=== PATIENT | female | born 1990 | race Caucasian/White ===

== ENCOUNTER → 2022-09-30 | Emergency (ER) | payer SELFPAY ==
[~2022-09-30] MED LIST: ACETAMINOPHEN 325 MG TABLET ONE; FLUCONAZOLE 100 MG TAB ONE; HYDROCODONE/APAP 5/325 MG TAB ONE; IBUPROFEN 200 MG TAB PO ONE; IBUPROFEN 400 MG TAB ONE; SMZ./TMP. 800/160 MG TABLET ONE
--- OUTSIDE RECORDS SUMMARY | 2022-09-30 17:12 | XMS REPORT | Continuity of Care Document ---
:1990 Author Organization [facility] t Address [address] [place] [address] Care Team Providers Name Role Phone Asked, No Pcp Primary Care Physician Unavailable WINSOME ROMERO Attending Clinician Unavailable RADHA COBB Attending Clinician Unavailable ROSINA MONZON Attending Clinician Unavailable YG GUILLAUME Attending Clinician Unavailable WINSOME ROMERO Admitting Clinician Unavailable LESLEY PATEL Admitting Clinician Unavailable MADELEINE GAGE Admitting Clinician Unavailable Problems Condition Condition Condition Status Onset Resolution Last Treating Co mments Source Name Details Category Date Date Treatment Clinician Date Alcohol Alcohol Disease Active [facility] withdrawal withdrawal 6-01 st seizure seizure 00:00: Hospita without without 00 l complicati complicati on on DTs DTs Disease Active [facility] (delirium (delirium 2-26 st tremens) tremens) 00:00: Hospit a 00 l Allergies, Adverse Reactions, Alerts Allergy Allergy Status Severity Reaction(s) Onset Inactive Treating Comm ents Source Name Type Date Date Clinician Levoflox Propensi Active Rash 2017-05 [facility] acin ty to 0-29 st adverse 00:00: Hospita reaction 00 l s to drug Family History Family Member Diagnosis Comments Start Date Stop Date Source Paternal grandmother Mental illness [facility] Natural [facility] Natural father [facility] Maternal grandfather Cancer [facility] Maternal grandmother [facility] mother [facility] Paternal grandfather Hypertension [facility] Paternal grandfather Stroke [facility] Social History Social Habit Start Date Stop Date Quantity Comments Source History of tobacco Occasional [facility] use tobacco smoker [facility] Gender identity [facility] Sexual orientation [facility] Alcohol intake 2019-10-30 2019-10-30 Current drinker [facility] 00:00:00 00:00:00 of alcohol Hospital (finding) Alcohol Comment 2019-07-26 2019-07-26 1 L vodka per day [facility] 00:00:00 00:00:00 or more reported Hospital by pt. Tobacco use and 2018-03-28 2018-03-28 Smokeless tobacco [facility] exposure 00:00:00 00:00:00 non-user Hospital Sex Assigned At [birth year] [facility] 00:00[facility]00 00:00:00 Hospital Smoking Status Start Date Stop Date Source Occasional tobacco smoker 2018-03-28 00:00:00 [facility] Medications Ordered Filled Start Stop Current Ordering Indication Dosage Frequency Signature Comments Components Source Medication Medication Date Date Medication? Clinician (SIG) Name Name levothyroxi 2019-0 Yes 75ug QD Take 75 Met hodi ne 6-[address] (SYNTHROID, 21:43: mouth Hospi ta LEVOXYL) 75 14 every l mcg tablet morning. liothyronin 2019-0 Yes 5ug QD Take 5 mcg Method[facility] e (CYTOMEL) 6-[address] 5 MCG 21:43: daily. Hospita tablet 14 l buPROPion 2020-0 Yes 150mg QD Take 150 Met hodi XL 6-[address] (WELLBUTRIN 21:43: mouth Hospi ta XL) 150 MG 14 daily. l 24 hr tablet Immunizations Ordered Immunization Filled Immunization Date Status Commen ts Source Name Name FLUCELVAX QUAD PF 2019-07-[address] 00:00:00 Hospital Procedures This patient has no known procedures. Plan of Care Planned Activity Planned Date Details Comments Source Future Scheduled 2023-02-28 [facility] Influenza [facility]al [facility] 00:00:00 (>/= 19 yrs) [code = IMM Influenza Seasonal (>/= 19 yrs)] Future Scheduled 2022-08-30 COVID-19 VACCINE (#1) [facility] Test 01:50:08 [code = COVID-19 VACCINE (#1)] Future Scheduled 2022-08-30 Pneumococcal Vaccine: [facility] Test 01:50:08 Pediatrics (0 to 5 Years) and At-Risk Patients (6 to 64 Years) (1 - PCV) [code = Pneumococcal Vaccine: Pediatrics (0 to 5 Years) and At-Risk Patients (6 to 64 Years) (1 - PCV)] Future Scheduled 2022-08-30 [facility] Test 01:50:08 malignant neoplasm of cervix (procedure) [code = 138178736] Future Scheduled 2022-08-30 INFLUENZA VACCINE [facility] Test 01:50:08 [code = INFLUENZA VACCINE] Future Scheduled [facility]00 malignant neoplasm of cervix (procedure) [code = 946007902] Future Scheduled 2020 [facility] 00:00:00 malignant neoplasm of cervix (procedure) [code = 863817544] Future Scheduled 1991-02-01 COVID-19 Vaccine (#1) [facility] Test 00:00:00 [code = COVID-19 Vaccine (#1)] Encounters Start End Encounter Admission Attending Care Care Encounter Source Date/Time Date/Time Type Type Clinicians Facility Department ID 2019-11-01 2019-11-02 Inpatient E YAYO ROMERO MED [id number] [facility] 08:08:00 18:30:00 WINSOME 2019-11-01 2019-11-01 Emergency E YAYO COBB TW [id number] [facility] 04:30:00 04:59:00 RADHA 2019-10-30 2019-10-31 Inpatient MEHAMMADINASAB, [facility] [id number] [place] 00:00:00 00:00:00 ROSINA [address] 2019-07-26 2019-07-29 Inpatient [facility], [facility] [id number] [place] 00:00:00 00:00:00 MICHELLEA [address] 2019-04-21 2019-04-21 Outpatient E [facility] [id number] 19:12:00 19:12:[address] [facility] 2018-09-14 2018-09-14 Emergency [facility] MED [id number] 1 [place] 11:34:00 11:34:00 Health Results This patient has no known results.
--- NOTE | 2022-09-30 19:04 | ER ---
Nurse's Notes [facility] Name: Maryann Alonso Age: 32 yrs Sex: Female : 1990 Arrival Date: 09/30/2022 Time: 17:09 Bed 20 Private MD: Diagnosis: Suicidal ideations Presentation: 09/30 17:41 Chief complaint: Patient states: "I have a cyst or something in the back of my neck and aa5 it drains every once in a while". Coronavirus screen: At this time, the client does not indicate any symptoms associated with coronavirus-19. Ebola Screen: Patient denies travel to an Ebola-affected area in the 21 days before illness onset. Initial Sepsis Screen: Does the patient meet any 2 criteria? No. Patient's initial sepsis screen is negative. Does the patient have a suspected source of infection? No. Patient's initial sepsis screen is negative. Risk Assessment: Do you want to hurt yourself or someone else? Patient reports no desire to harm self or others. Onset of symptoms was September 2022. 17:41 Acuity: MARCE 4 aa5 17:41 Method Of Arrival: Ambulatory aa5 19:31 Note pt up for discharge signed dc paperwork pt verbalized having suicidal thoughts has kl no plan but sumner not want to live reports is homeless and the place she stays at time has no water or electricity. Historical: - Allergies: 17:42 Levaquin; aa5 - PMHx: 17:42 Hypothyroidism; aa5 - PSHx: 17:42 None; aa5 - Immunization history:: Adult Immunizations unknown. - Social history:: Smoking status: Patient reports the use of cigarette tobacco products, denies chronic smoking, but will smoke occasionally. Screenin:45 [facility] ED Fall Risk Assessment (Adult) History of falling in the last 3 months, ko1 including since admission No falls in past 3 months (0 pts) Confusion or Disorientation No (0 pts) Intoxicated or Sedated No (0 pts) Impaired Gait No (0 pts) Mobility Assist Device Used No (0 pt) Altered Elimination No (0 pt) Score/Fall Risk Level 0 - 2 = Low Risk Oriented to surroundings, Maintained a safe environment, Educated pt \\T\\ family on fall prevention, incl call for assistance when getting out of bed, Assessed \\T\\ reinforced patient's understanding of fall precautions, Provided non-skid footwear, Hourly rounding (assess needs \\T\\ fall precautionary measures) done, Used ambulatory aids as needed (educated on \\T\\ assisted with), Used gait belt as appropriate. Abuse screen: Denies threats or abuse. Denies injuries from another. Nutritional screening: No deficits noted. Tuberculosis screening: No symptoms or risk factors identified. Assessment: 18:45 General: Appears distressed, uncomfortable, Behavior is calm, cooperative, appropriate ko1 for age. Pain: Complains of pain in neck. Neuro: No deficits noted. Cardiovascular: No deficits noted. Respiratory: No deficits noted. GI: No deficits noted. : No deficits noted. EENT: No deficits noted. Derm: Abscess. Musculoskeletal: No deficits noted. 20:08 Reassessment: ASSUMED CARE OF PT. PT CHANGED INTO PAPER SCRUBS. ALL EQUIPMENT REMOVED jj7 FROM ROOM. General: Appears in no apparent distress. comfortable, Behavior is calm, cooperative, appropriate for age, Reports SUICIDAL THOUGHTS DUE TO HOPELESSNESS. Psych: 19:32 [place] Suicide Severity Screening: In the past month, have you wished you were kl or wished you could go to sleep and not wake up? Patient responds "yes." Based off the client's responses additional C-SSRS screening is required. "In the past month, have you actually had any thoughts of killing yourself?" Patient responds "yes." "In your lifetime, have you ever done anything, started to do anything, or prepared to do anything to end your life?" Patient responds "yes." Patient reports suicidal intent occurred greater than 3 months prior. Subjective: Patient's mood is sad, hopeless, Delusions are denied, Hallucinations are denied Having thoughts of suicide. Denies suicidal plan. Objective: Patient is cooperative, Speech is normal, Affect is appropriate. Interventions: Removed personal items and placed in bag. Patient placed in hospital gown. Safety Checks: Pt denies substance abuse. Vital Signs: 17:41 BP 144 / 101; Pulse 89; Resp 16 S; Temp 98.1(O); Pulse Ox 100% on R/A; Weight 58.97 kg aa5 (R); Height 5 ft. 6 in. (R); 19:11 BP 138 / 92; Pulse 85; Resp 18; Pulse Ox 99% ; ko1 17:41 Body Mass Index 20.98 (58.97 kg, 167.64 cm) aa5 ED Course: 17:12 Patient arrived in ED. as 17:13 Alfred Ellis PA is PHCP. cp 17:13 Alfred Ogden MD is Attending Physician. cp 17:41 Arm band placed on. aa5 17:42 Triage completed. aa5 18:37 Nabila Leonardo, RN is Primary Nurse. ko1 18:45 Patient has correct armband on for positive identification. Bed in low position. Call ko1 light in reach. Warm blanket given. 19:11 No provider procedures requiring assistance completed. Patient did not have IV access ko1 during this emergency room visit. 19:14 Primary Nurse role handed off by Nabila Leonardo, PRAVEENA ko1 20:08 Kristin Cruz RN is Primary Nurse. jj7 20:08 No apparent distress. TIRED. Safety Checks: Personal items have been removed. ALL ITEMS jj7 REMOVED PER SUICIDE PROTOCOL The door is open or patient has been placed in a hallway bed/chair. Sitter present at this time. 20:08 SUICIDE PRECAUTIONS. jj7 20:08 Patient is placed in psych hold. jj7 Administered Medications: 18:43 Drug: HYDROcodone-acetaminophen PO 5 mg-325 mg 1 tabs Route: PO; ko1 18:43 Drug: Ibuprofen PO 600 mg Route: PO; ko1 19:08 Drug: Fluconazole PO 150 mg Route: PO; ko1 19:08 Drug: Trimethoprim-Sulfamethoxazole PO (160 mg-800 mg (DS) 1 tablet Route: PO; ko1 Medication: 19:11 VIS not applicable for this client. ko1 Outcome: 19:03 Discharge ordered by MD. cp 23:13 ER care complete, transfer ordered by . cp Signatures: Chelsi Wiggins RN RN kl Martinez, Amelia as Calderon, Audri, RN RN aa5 Alfred Ellis PA PA cp Nabila Leonardo, PRAVEENA RN ko1 Kristin Cruz RN RN jj7 Corrections: (The following items were deleted from the chart) 17:42 17:42 Allergies: No Known Allergies; aa5 aa5 19:15 19:11 Discharged to home ambulatory, ko1 ko1 19:15 19:11 Condition: stable ko1 ko1 19:15 19:11 Discharge instructions given to patient, Instructed on discharge instructions, ko1 follow up and referral plans. medication usage, wound care, Demonstrated understanding of instructions, follow-up care, medications, wound care, Prescriptions given X 2, ko1 : 19:12 Patient left the ED. ko1 ko1
--- NOTE | 2022-09-30 19:04 | EDPHYS ---
Physician Documentation [facility] Name: Maryann Alonso Age: 32 yrs Sex: Female : 1990 Arrival Date: 09/30/2022 Time: 17:09 Bed 20 Private MD: ED Physician Alfred Ogden Historical: - Allergies: 09/30 17:42 Levaquin; aa5 - PMHx: 17:42 Hypothyroidism; aa5 - PSHx: 17:42 None; aa5 - Immunization history:: Adult Immunizations unknown. - Social history:: Smoking status: Patient reports the use of cigarette tobacco products, denies chronic smoking, but will smoke occasionally. Vital Signs: 17:41 BP 144 / 101; Pulse 89; Resp 16 S; Temp 98.1(O); Pulse Ox 100% on R/A; Weight 58.97 kg aa5 (R); Height 5 ft. 6 in. (R); 19:11 BP 138 / 92; Pulse 85; Resp 18; Pulse Ox 99% ; ko1 17:41 Body Mass Index 20.98 (58.97 kg, 167.64 cm) aa5 MDM: 17:40 Patient medically screened. [facility] 09/30 19:27 Order name: EKG; Complete Time: 19:27 cp 09/30 19:27 Order name: IV Saline Lock 09/30 19:27 Order name: Suicide Precautions; Complete Time: 21:09 cp 09/30 19:27 Order name: Suicide Screening ([facility]); Complete Time: 21:09 09/30 19:27 Order name: Labs collected and sent; Complete Time: 21: cp 09/30 19:27 Order name: Acetaminophen; Complete Time: 21:28 cp 09/30 19:27 Order name: Salicylate; Complete Time: 21:28 cp 09/30 19:27 Order name: Test, Urine; Complete Time: 21:28 cp 09/30 19:27 Order name: Ptt, Activated; Complete Time: 21:28 cp 09/30 19:27 Order name: Basic Metabolic Panel; Complete Time: 21:28 cp 09/30 21:28 Interpretation: Normal except: NA 135; BUN 6. cp 09/30 19:27 Order name: CBC with Diff; Complete Time: 21:28 cp 09/30 21:28 Interpretation: MPV 7.1; Reviewed. cp 09/30 19:27 Order name: Hepatic Function; Complete Time: 21:28 cp 09/30 21:29 Interpretation: Normal except: AST 10. cp 09/30 19:27 Order name: ETOH Level; Complete Time: 21:28 cp 09/30 21:29 Interpretation: ETOH < 10; Reviewed. cp 09/30 19:27 Order name: PT-INR; Complete Time: 21:28 cp 09/30 21:29 Interpretation: Reviewed. cp 09/30 19:27 Order name: Urine Drug Screen; Complete Time: 21:28 cp 09/30 21:29 Interpretation: Reviewed. cp 09/30 19:27 Order name: EKG - Nurse/Tech; Complete Time: 21:29 cp Administered Medications: 18:43 Drug: HYDROcodone-acetaminophen PO 5 mg-325 mg 1 tabs Route: PO; ko1 18:43 Drug: Ibuprofen PO 600 mg Route: PO; ko1 19:08 Drug: Fluconazole PO 150 mg Route: PO; ko1 19:08 Drug: Trimethoprim-Sulfamethoxazole PO (160 mg-800 mg (DS) 1 tablet Route: PO; ko1 Disposition Summary: 09/30/22 23:13 Transfer Ordered Accepting Physician: Doctor cp Transfer Location: Psych Facility cp Reason: Higher level of care cp Condition: Stable(09/30/22 23:13) cp Problem: new(09/30/22 23:13) cp Symptoms: have improved(09/30/22 23:13) cp Diagnosis - Suicidal ideations cp Forms: - Medication Reconciliation Form cp - SBAR form cp Signatures: Dispatcher [employer] EDAlfred Benitez MD MD cha Calderon, Audri, RN RN aa5 Alfred Ellis PA PA cp Nabila Leonardo, RN RN ko1 Corrections: (The following items were deleted from the chart) 17:42 17:42 Allergies: No Known Allergies; aa5 aa5 19:18 19:03 Home cp cp 19:18 19:03 new cp cp 19:18 19:03 have improved cp cp 19:18 19:03 Stable cp cp 19:18 19:03 Local infection of the skin and subcutaneous tissue, unspecified cp cp
[2022-09-30 19:30] VITALS: TEMP 98.1
[2022-09-30 19:31] VITALS: BP 138/92; O2SAT 99
[2022-09-30 20:47] LABS: Specific Gravity 1.014 (1.005-1.030)
[2022-09-30 20:49] LABS: Absolute Lymphocytes (CBC) 2.1 K/uL (0.7-4.9); Lymphocytes % 26.4 % (15.3-44.8); MCV 91.7 fL (80-100); MPV 7.1 fL (7.6-11.3); RBC Red Blood Cell Count 4.04 M/uL (3.86-4.86)
[2022-09-30 21:00] LABS: Protime INR 1.04
[2022-09-30 21:12] LABS: ALT/SGPT 19 U/L (13-56); AST/SGOT 10 U/L (15-37); Albumin 3.5 g/dL (3.4-5.0); Alkaline Phosphatase 86 U/L (45-117); BUN Blood Urea Nitrogen 6 mg/dL (7-18); Bicarbonate 28 mEq/L (21-32); Bilirubin Direct 0.1 mg/dL (0-0.2); Bilirubin Total 0.3 mg/dL (0.2-1.0); Glomerular Filtration Rate 123 ml/min (=/>90); Glucose Level 106 mg/dL (74-106); Protein, Total 6.5 g/dL (6.4-8.2); Sodium Level 135 mEq/L (136-145)
[2022-09-30 21:13] LABS: Barbiturates NEGATIVE (NEGATIVE); Benzodiazepines NEGATIVE (NEGATIVE); Cocaine NEGATIVE (NEGATIVE); METHAMPHETAM NEGATIVE (NEGATIVE); Methadone NEGATIVE (NEGATIVE); Opiates NEGATIVE (NEGATIVE); Phencyclidine NEGATIVE (NEGATIVE); THC Cannibis NEGATIVE (NEGATIVE)
== END ==
LOC: ER 17:09
DX: R45.851 Suicidal ideations (principal)
CPT/HCPCS: 36415; 80048; 80076; 80307; 81025; 85025; 85610; 85730; G0480

== ENCOUNTER 2023-04-19 03:45 | Emergency (ER) | payer SELFPAY ==
--- OUTSIDE RECORDS SUMMARY | 2023-04-19 03:49 | XMS REPORT | Continuity of Care Document ---
:1990 Author Organization [facility] t Address [address]. [address] [place] [address] Care Team Providers Name Role Phone Asked, No Pcp Primary Care Physician Unavailable ROSINA MONZON Attending Clinician Unavailable YG GUILLAUME Attending Clinician Unavailable LESLEY PATEL Admitting Clinician Unavailable [...] Stop Date Source Paternal grandmother Mental illness [facility] Natural brother [facility] father [facility] Maternal grandfather Cancer [facility] Maternal grandmother [facility] mother [facility] Paternal grandfather Hypertension [facility] Paternal grandfather Stroke [facility] Social History Social Habit Start Date Stop Date Quantity Comments Source History of tobacco Cigarette Smoker [facility] Gender identity [facility] Sexual orientation [facility] Alcohol intake 2019-10-30 2019-10-30 Current drinker [facility] 00:00:00 00:00:00 [facility] (finding) History of Social 2019-10-30 2019-10-[address] function 00:00:00 00:00:00 [facility] Alcohol Comment 2019-07-26 2019-07-26 1 L vodka per [facility] 00:00:00 00:00:00 day or more Hospital reported by pt. Tobacco use and 2018-03-28 2018-03-28 Smokeless [facility] exposure 00:00:00 00:00:00 tobacco non-user Hospital Sex Assigned At [birth year] [facility] 00:00:00 00:00:00 Hospital Smoking Status Start Date Stop Date Source Occasional tobacco smoker 2018-03-28 00:00:00 [facility] Medications Ordered Filled Start Stop Current Ordering Indication Dosage Frequency Signature Comments Components Source Medication Medication Date Date Medication? Clinician (SIG) Name Name levothyroxi 2020-0 Yes 75ug QD Take 75 Met h[facility] ne 6-[address] (SYNTHROID, 21:43: mouth Hospi ta LEVOXYL) 75 14 every l mcg tablet morning. liothyronin 2020-0 Yes 5ug QD Take 5 mcg [facility] (CYTOMEL) 6-[address] 5 MCG 21:43: daily. Hospita tablet 14 l buPROPion 2020-0 Yes 150mg QD Take 150 Met hodi XL 6-[address] (WELLBUTRIN 21:43: mouth Hospi ta XL) 150 MG 14 daily. l 24 hr tablet levothyroxi 2020-0 Yes 75ug QD Take 75 Met hodi ne 6-[address] (SYNTHROID, 21:43: mouth Hospi ta LEVOXYL) 75 14 every l mcg tablet morning. liothyronin 2020-0 Yes 5ug QD Take 5 mcg [facility] (CYTOMEL) 6-[address] 5 MCG 21:43: daily. Hospita tablet 14 l buPROPion 2020-0 Yes 150mg QD Take 150 Met hodi XL 6-[address] (WELLBUTRIN 21:43: mouth Hospi ta XL) 150 MG 14 daily. l 24 hr tablet Immunizations Ordered Filled Immunization Date Status Comments Sourc e Immunization Name Name FLUCELVAX QUAD PF 2019-07-[address] 00:00:00 Hospital FLUCELVAX QUAD PF Unknown Completed [facility] Procedures This patient has no known procedures. Plan of Care Planned Activity Planned Date Details Comments Source Future Scheduled 2023-03-26 COVID-19 VACCINE (#1) [facility] Test 21:17:27 [code = COVID-19 VACCINE (#1)] Future Scheduled 2023-03-26 [facility] Test 21:17:27 malignant neoplasm of cervix (procedure) [code = 287525459] Future Scheduled 2023-03-26 INFLUENZA VACCINE (#1) [facility] Test 21:17:27 [code = INFLUENZA VACCINE (#1)] Future Scheduled 2023-02-28 IMM Influenza Seasonal H arr Health Test 00:00:00 (>/= 19 yrs) [code = IMM Influenza Seasonal (>/= 19 yrs)] Future Scheduled 2023-01-29 IMM Influenza Seasonal H arr Health Test 00:00:00 (>/= 19 yrs) [code = IMM Influenza Seasonal (>/= 19 yrs)] Future Scheduled 2022-08-30 COVID-19 VACCINE (#1) [facility] Test 01:50:08 [code = COVID-19 VACCINE (#1)] Future Scheduled 2022-08-30 Pneumococcal Vaccine: [facility] Test 01:50:08 Pediatrics (0 to 5 Years) and At-Risk Patients (6 to 64 Years) (1 - PCV) [code = Pneumococcal Vaccine: Pediatrics (0 to 5 Years) and At-Risk Patients (6 to 64 Years) (1 - PCV)] Future Scheduled 2022-08-30 [facility] Test 01:50:08 malignant neoplasm of cervix (procedure) [code = 973233202] Future Scheduled 2022-08-30 INFLUENZA VACCINE [facility] Test 01:50:08 [code = INFLUENZA VACCINE] Future Scheduled [facility] 00:[facility]:00 malignant neoplasm of cervix (procedure) [code = 078708767] Future Scheduled 2020 [facility] Test 00:00:00 malignant neoplasm of cervix (procedure) [code = 562574311] Future Scheduled 2020 [facility] Test 00:00:00 malignant neoplasm of cervix (procedure) [code = 585570035] Future Scheduled 2011-08-02 Screening for [facility] Test 00:00:00 malignant neoplasm of cervix (procedure) [code = 769879622] Future Scheduled 1991-02-01 COVID-19 Vaccine (#1) [facility] Test 00:00:00 [code = COVID-19 Vaccine (#1)] Future Scheduled 1991-02-01 COVID-19 Vaccine (#1) [facility] Test 00:00:00 [code = COVID-19 Vaccine (#1)] Encounters Start End Encounter Admission Attending Care Care Encounter Source Date/Time Date/Time Type Type Clinicians Facility Department ID 2019-10-30 2019-10-31 Inpatient NA, [facility] [id number] [place] 00:00:00 00:00:00 ROSINA 496 Method i 2019-07-26 2019-07-29 Inpatient [place] [id number] [place] 00:00:00 00:00:00 YG 051 Method i 2018-09-14 2018-09-14 Emergency [facility] MED [id number] [place] 11:34:00 11:34:00 Health Results This patient has no known results.
[2023-04-19] MEDS ORDERED: CLINDAMYCIN 900MG/D5W 900 MG/50 ML IVPB IV ONE (04:13)
[2023-04-19 05:12] LABS: Absolute Lymphocytes (CBC) 3.3 K/uL (0.7-4.9); Hematocrit 38.7 % (36.0-45.0); Lymphocytes % 45.7 % (15.3-44.8); MCV 88.4 fL (80-100); MPV 6.4 fL (7.6-11.3); Platelets 403 thou/uL (152-406); RBC Red Blood Cell Count 4.38 M/uL (3.86-4.86)
[2023-04-19 05:15] LABS: Albumin 3.8 g/dL (3.4-5.0); Bilirubin Total 0.3 mg/dL (0.2-1.0); Potassium 3.7 mEq/L (3.5-5.1); Protein, Total 7.5 g/dL (6.4-8.2)
--- NOTE | 2023-04-19 05:31 | ER ---
Nurse's Notes [facility] Name: Maryann Alonso Age: 32 yrs Sex: Female : 1990 Arrival Date: 04/19/2023 Time: 03:45 Bed 6 Private MD: Diagnosis: Cellulitis of right lower limb Presentation: 04/19 03:52 Chief complaint: Patient states: wound w/ drainage and pain to the right lateral thigh la4 for the past 3 weeks. Coronavirus screen: Vaccine status:. Ebola Screen: Patient negative for fever greater than or equal to 101.5 degrees Fahrenheit, and additional compatible Ebola Virus Disease symptoms No symptoms or risks identified at this time. Initial Sepsis Screen: Does the patient meet any 2 criteria? No. Patient's initial sepsis screen is negative. Does the patient have a suspected source of infection? Yes: Skin breakdown/wound. Risk Assessment: Do you want to hurt yourself or someone else? Patient reports no desire to harm self or others. Onset of symptoms was March 27, 2023. Care prior to arrival: None. 03:52 Method Of Arrival: EMS: [facility] la4 03:52 Acuity: MARCE 3 la4 Triage Assessment: 03:55 General: Appears uncomfortable, Behavior is calm, cooperative, appropriate for age. la4 Pain: Complains of pain in lateral aspect of right thigh Pain does not radiate. Pain currently is 7 out of 10 on a pain scale. Quality of pain is described as tender, Pain began 3 weeks ago per pt report Is continuous. Neuro: No deficits noted. Arias Agitation-Sedation Scale (RASS): 0 - Alert and Calm Level of Consciousness is awake, alert, obeys commands, Oriented to person, place, time, situation, Appropriate for age. Cardiovascular: No deficits noted. Reports None Heart tones S1 S2 Capillary refill < 3 seconds is brisk Pulses are all present. Respiratory: No deficits noted. Airway is patent Trachea midline Breath sounds are clear bilaterally. GI: No deficits noted. No signs and/or symptoms were reported involving the gastrointestinal system. Bowel sounds present X 4 quads. Abd is soft and non tender. : No deficits noted. No signs and/or symptoms were reported regarding the genitourinary system. Musculoskeletal: No deficits noted. No signs and/or symptoms reported regarding the musculoskeletal system. Circulation, motion, and sensation intact. Capillary refill < 3 seconds, is brisk, Range of motion: intact in all extremities. 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 - Social history:: Smoking status: Patient reports the use of cigarette tobacco products. - Code Status:: Full code. Screenin:59 [facility] ED Fall Risk Assessment (Adult) History of falling in the last 3 months, la4 including since admission No falls in past 3 months (0 pts) Confusion or Disorientation No (0 pts) Intoxicated or Sedated No (0 pts) Impaired Gait Yes (1 pt) Mobility Assist Device Used No (0 pt) Altered Elimination No (0 pt) Score/Fall Risk Level 0 - 2 = Low Risk Hourly rounding (assess needs \T\ fall precautionary measures) done. Abuse screen: Denies threats or abuse. Denies injuries from another. Nutritional screening: No deficits noted. Tuberculosis screening: No symptoms or risk factors identified. Assessment: 03:59 Reassessment: No changes from previously documented assessment. see triage nursing la4 assessment. General: Appears in no apparent distress. Behavior is calm, cooperative, appropriate for age. Vital Signs: 03:52 BP 141 / 105; Pulse 100; Resp 18; Temp 98.6; Pulse Ox 100% on R/A; Weight 56.7 kg; la4 Height 5 ft. 6 in. ; Pain 7/10; 04:09 BP 128 / 93; Pulse 89; ec2 04:23 BP 125 / 96; Pulse 88; Resp 16; Pulse Ox 100% ; nw1 06:20 BP 121 / 85; Pulse 89; Resp 18; Temp 98.8; Pulse Ox 100% on R/A; la4 03:52 Body Mass Index 20.18 (56.70 kg, 167.64 cm) la4 03:52 Pain Scale: Adult la4 03:52 pain to the right thigh la4 Vitals: 06:20 Cardiac Rhythm Assessment Regular Sinus rhythm. la4 [place] Coma Score: 06:20 Eye Response: spontaneous(4). Motor Response: obeys commands(6). Verbal Response: la4 oriented(5). Total: 15. ED Course: 03:49 Patient arrived in ED. as6 03:50 Doron Hernandez MD is Attending Physician. ec2 03:52 Radha Multani, RN is Primary Nurse. la4 03:55 Triage completed. la4 03:55 Arm band placed on Patient placed in an exam room, on a stretcher, on child monitor, la4 on pulse oximetry. 03:59 No apparent distress. Awaiting lab results. la4 03:59 Patient has correct armband on for positive identification. Placed in gown. Bed in low la4 position. Call light in reach. Side rails up X2. Provided Education on: plan of care. 03:59 No provider procedures requiring assistance completed. Inserted saline lock: 20 gauge la4 in right forearm, using aseptic technique. 04:02 CMP Sent. nw1 04:02 CBC with Diff Sent. nw1 04:23 Client placed on continuous cardiac and pulse oximetry monitoring. NIBP monitoring nw1 applied. radiation monitor on. Pulse ox on. NIBP on. 06:20 IV discontinued, intact, bleeding controlled, No redness/swelling at site. Pressure la4 dressing applied. Administered Medications: 03:57 Drug: NS 0.9% IV 1000 ml IV at 1 bolus Per protocol; 1000 mL bolus Route: IV; Rate: 1 nw1 bolus; Site: right forearm; 04:01 Drug: Clindamycin IVPB 900 mg IVPB once over 30 mins; (mix in 50 mL) Route: IVPB; la4 Infused Over: 30 mins; Site: right forearm; 05:31 Drug: Ketorolac IVP 15 mg IVP once Route: IVP; Site: right forearm; nw1 Medication: 03:59 VIS not applicable for this client. la4 Outcome: 05:30 Discharge ordered by . ec2 06:20 Discharged to home ambulatory, la4 06:20 Condition: good 06:20 Discharge instructions given to patient, Instructed on discharge instructions, follow up and referral plans. medication usage, wound care, when to return to the ER for further evaluation and treatment of non-healing wound Prescriptions given X 1, 06:22 Patient left the ED. la4 Signatures: Julio C Alicea RN RN as6 Doron Hernandez MD MD ec2 Radha Multani RN RN la4 Scarlett Liz RN RN nw1
--- NOTE | 2023-04-19 05:31 | EDPHYS ---
Physician Documentation [facility] Name: Maryann Alonso Age: 32 yrs Sex: Female : 1990 Arrival Date: 04/19/2023 Time: 03:45 Bed 6 Private MD: ED Physician Doron Hernandez HPI: 04/19 03:55 This 32 yrs old Female presents to ER via Unassigned with complaints of ec2 wounds. 03:55 Patient arrives today for evaluation of her wounds. States that she had wounds on the ec2 right outer aspect of her thigh, states that she has had some drainage, states what prompted evaluation today was that the wounds were not healing. Patient reports no fevers or chills, no nausea or vomiting. Patient denies any diarrhea symptoms. Reports no medical problems or daily medication use.. 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 - Social history:: Smoking status: Patient reports the use of cigarette tobacco products. - Code Status:: Full code. ROS: 03:55 Constitutional: as per hpi ec2 Exam: 03:55 Constitutional: GEN: NAD Head: atraumatic Eyes: EOMI Ears: External ears are ec2 normal. CV: regular rate LUNGS: no respiratory distress ABD: non-distended SKIN: 2 superficial ulcers noted to the right lateral aspect of the thigh, crusting appreciated, slight erythema noted around the lesions. Slight warmth appreciated. MSK: no evidence of trauma, intact distal neurovascular status in the lower extremities. NEURO: moves all extremities equally Vital Signs: 03:52 BP 141 / 105; Pulse 100; Resp 18; Temp 98.6; Pulse Ox 100% on R/A; Weight 56.7 kg; la4 Height 5 ft. 6 in. ; Pain 7/10; 04:09 BP 128 / 93; Pulse 89; ec2 04:23 BP 125 / 96; Pulse 88; Resp 16; Pulse Ox 100% ; nw1 06:20 BP 121 / 85; Pulse 89; Resp 18; Temp 98.8; Pulse Ox 100% on R/A; la4 03:52 Body Mass Index 20.18 (56.70 kg, 167.64 cm) la4 03:52 Pain Scale: Adult la4 03:52 pain to the right thigh la4 Wendy Coma Score: 06:20 Eye Response: spontaneous(4). Motor Response: obeys commands(6). Verbal Response: la4 oriented(5). Total: 15. MDM: 03:50 Patient medically screened. ec2 03:55 Data reviewed: vital signs. ED course: Patient arrives today for evaluation of skin ec2 wounds. Examination remarkable for well-appearing nontoxic individual is otherwise in no acute distress with skin wounds as noted above. Will obtain basic lab work, give the patient clindamycin for presumptive cellulitis. Currently considering cellulitis, low suspicion for urticarial rash, low suspicion for process such as necrotizing fasciitis.. 05:30 ED course: CBC and CMP are reassuring, no marked leukocytosis appreciated. Does have ec2 some eosinophilia as well as lymphocytes noted on the CBC, rash does not look like a typical fungal rash especially with the drainage and crusting and surrounding erythema, I feel be more appropriate to start her on antibiotics and have her follow-up with her primary care doctor. Will discharge home. Return precautions given. Will start on clindamycin.. 04/19 03:50 Order name: CBC with Diff; Complete Time: 05:29 ec2 04/19 03:50 Order name: CMP; Complete Time: 05:19 ec2 Administered Medications: 03:57 Drug: NS 0.9% IV 1000 ml IV at 1 bolus Per protocol; 1000 mL bolus Route: IV; Rate: 1 nw1 bolus; Site: right forearm; 04:01 Drug: Clindamycin IVPB 900 mg IVPB once over 30 mins; (mix in 50 mL) Route: IVPB; la4 Infused Over: 30 mins; Site: right forearm; 05:31 Drug: Ketorolac IVP 15 mg IVP once Route: IVP; Site: right forearm; nw1 Disposition Summary: 04/19/23 05:30 Discharge Ordered Notes: Location: Home ec2 Condition: Stable ec2 Diagnosis - Cellulitis of right lower limb ec2 Followup: ec2 - With: Private Physician - When: - Reason: Recheck today's complaints, Continuance of care Discharge Instructions: - Discharge Summary Sheet ec2 - Cellulitis, Adult ec2 Forms: - Medication Reconciliation Form ec2 - Thank You Letter ec2 - Antibiotic Education ec2 - Prescription Opioid Use ec2 - Patient Portal Instructions ec2 - Leadership Thank You Letter ec2 Prescriptions: - Clindamycin HCl 150 mg Oral capsule - take 3 capsule ORAL route every 8 hours for 7 days; 63 capsule; Refills: 0, ec2 Product Selection Permitted Signatures: Dispatcher [employer] EDMS Doron Hernandez MD MD ec2 Radha Multani RN RN la4 Scarlett Liz RN RN nw1 Corrections: (The following items were deleted from the chart) 05:30 05:30 ED course: CBC and CMP are reassuring, no marked leukocytosis appreciated. Does ec2 have some eosinophilia as well as lymphocytes. ec2
[2023-04-19] MEDS ORDERED: KETOROLAC 30 MG/ML INJ ONE (05:41)
[2023-04-19 06:29] VITALS: O2SAT 100
[2023-04-19 06:32] VITALS: BP 121/85; TEMP 98.8
== END 2023-04-19 06:22 | disposition home or self-care (01) ==
LOC: ER 03:45
DX: L03.115 Cellulitis of right lower limb (principal)
CPT/HCPCS: 36415; 80053; 85025; 96374; 96375; 99285

== ENCOUNTER 2024-10-10 17:25 | Emergency (ER) | payer SELFPAY ==
[2024-10-10] MEDS ORDERED: NA CHLORIDE 0.9% 1,000 ML ONE (17:45)
[2024-10-10 17:54] LABS: Absolute Lymphocytes (CBC) 3.7 K/uL (0.7-4.9); Absolute Monocytes 0.9 K/uL (0.1-1.3); Absolute Neutrophil 6.8 K/uL (1.8-8.0); Basophils % 0.3 % (0-1.3); Eosinophils % 0.2 % (0-4.4); Hematocrit 37.3 % (36.0-45.0); Hemoglobin 13.2 g/dL (12.0-15.0); Lymphocytes % 32.2 % (15.3-44.8); MCH 30.6 pg (27.0-35.0); MCHC 35.3 g/dL (32.0-36.0); MCV 86.8 fL (80-100); MPV 7.1 fL (7.6-11.3); Monocytes % 8.1 % (3.3-12.3); Neutrophils % 59.2 % (41.7-73.7); Nucleated Red Blood Cells % 0.1 % (0-0); Platelets 324 thou/uL (152-406); Red Cell Distribution Width 12.8 % (12.1-15.2)
[2024-10-10 17:59] LABS: Specific Gravity < 1.005 (1.005-1.030)
[2024-10-10 18:01] LABS: PT Prothrombin Time 12.5 SECONDS (10-13.0); PTT, Activated Partial Thromb 33.2 SECONDS (27.2-37.4); Protime INR 1.1
[2024-10-10 18:05] LABS: Barbiturates NEGATIVE (NEGATIVE); Benzodiazepines NEGATIVE (NEGATIVE); Cocaine NEGATIVE (NEGATIVE); METHAMPHETAM NEGATIVE (NEGATIVE); Methadone NEGATIVE (NEGATIVE); Opiates NEGATIVE (NEGATIVE); Phencyclidine NEGATIVE (NEGATIVE); THC Cannibis NEGATIVE (NEGATIVE)
[2024-10-10 18:17] LABS: ALT/SGPT 291 U/L (13-56); AST/SGOT 16 U/L (15-37); Albumin/Globulin Ratio 0.8 (1.1-1.8); Alkaline Phosphatase 168 U/L (45-117); Anion Gap 15.2 mEq/L (5.0-15.0); BUN Blood Urea Nitrogen 3 mg/dL (7-18); Bicarbonate 19 mEq/L (21-32); Bilirubin Direct < 0.2 mg/dL (0-0.2); Bilirubin Indirect, Calculated 0.2 mg/dL (0.2-0.8); Bilirubin Total 0.4 mg/dL (0.2-1.0); Glomerular Filtration Rate 126 ml/min (=/>90); Glucose Level 136 mg/dL (74-106); Potassium 3.2 mEq/L (3.5-5.1); Sodium Level 136 mEq/L (136-145)
[2024-10-10] MEDS ORDERED: ZIPRASIDONE MESYLA 20 MG/VIAL IM ONE (18:31)
--- NOTE | 2024-10-10 18:33 | ER ---
Nurse's Notes [facility] Name: Maryann Alonso Age: 34 yrs Sex: Female : 1990 Arrival Date: 10/10/2024 Time: 17:25 Bed 2 Private MD: Diagnosis: Alcohol abuse with intoxication, unspecified;Acute agitated delirium, agitation requiring sedation;Hypothyroidism, unspecified Presentation: 10/10 17:30 Chief complaint: EMS states: toned out to pt home for aggressive behavior. EMS reports ld1 patient punching window. Upon arrival pt was sedated. 17:30 Method Of Arrival: EMS: [facility] ld1 17:30 Coronavirus screen: At this time, the client does not indicate any symptoms associated ld1 with coronavirus-19. Ebola Screen: No symptoms or risks identified at this time. Initial Sepsis Screen: Does the patient meet any 2 criteria? No. Patient's initial sepsis screen is negative. Does the patient have a suspected source of infection? No. Patient's initial sepsis screen is negative. Risk Assessment: Do you want to hurt yourself or someone else? Patient reports no desire to harm self or others. Onset of symptoms was October 10, 2024. 17:30 Acuity: MARCE 2 ld1 Triage Assessment: 17:39 General: Appears in no apparent distress. Behavior is fussy. Pain: Denies pain. ld1 17:39 EENT: No signs and/or symptoms were reported regarding the EENT system. Neuro: Level of ld1 Consciousness is obeys commands, Oriented to person, place, time, situation. Cardiovascular: Capillary refill < 3 seconds. Respiratory: Airway is patent Respiratory effort is even, unlabored. GI: Abdomen is flat, non-distended. : No signs and/or symptoms were reported regarding the genitourinary system. Derm: No signs and/or symptoms reported regarding the dermatologic system. Musculoskeletal: No signs and/or symptoms reported regarding the musculoskeletal system. 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 - Infectious Disease History:: Denies. - Social history:: Smoking status: Patient denies any tobacco usage or history of. Screenin:44 [facility] ED Fall Risk Assessment (Adult) History of falling in the last 3 months, ld1 including since admission No falls in past 3 months (0 pts) Confusion or Disorientation No (0 pts) Intoxicated or Sedated No (0 pts) Impaired Gait No (0 pts) Mobility Assist Device Used No (0 pt) Altered Elimination No (0 pt) Score/Fall Risk Level 0 - 2 = Low Risk Oriented to surroundings, Hourly rounding (assess needs \\T\\ fall precautionary measures) done. Abuse screen: Denies threats or abuse. Denies injuries from another. Nutritional screening: No deficits noted. Tuberculosis screening: No symptoms or risk factors identified. Assessment: 17:39 Reassessment: See triage assessment. ld1 17:39 Reassessment: SOPHIA placed on patient. Pt brought to ER by [facility] \\T\\ [facility]. Patient ld1 denies pain at this time. 18:30 Reassessment: Patient appears in no apparent distress at this time. No changes from ld1 previously documented assessment. 18:44 Reassessment: Patient appears in no apparent distress at this time. Pt awake and ld1 yelling random words in room, pt not cooperative. Trying to touch staff, not staying in bed and yelling in room, will not remain on monitor at this time. ERP at bedside. See MAR for orders. 18:49 Reassessment: Pt will not keep brief on - biting brief at this time. States "There ld1 ain't nothing wrong with what I got cookin down there." Staff educating patient on need to keep brief on. Pt chewing diaper at this time. 19:37 Reassessment: Patient appears in no apparent distress at this time. Patient and/or bm8 family updated on plan of care and expected duration. Pain level reassessed. pt is resting with eyes closed breathing is even unlabored on RA with symmetrical rise an fall of chest. PT was cleaned and diapered, lien changed with fresh gown put on. Patient denies pain at this time. General: Appears in no apparent distress. comfortable, Behavior is drowsy. Pain: Denies pain. Neuro: Level of Consciousness is unable to assess due to pt sleeping. Cardiovascular: Heart tones S1 S2 present Capillary refill < 3 seconds in bilateral fingers Patient's skin is warm and dry. Respiratory: Airway is patent Respiratory effort is even, unlabored, Respiratory pattern is regular, symmetrical, Breath sounds are clear bilaterally. GI: No signs and/or symptoms were reported involving the gastrointestinal system. : No signs and/or symptoms were reported regarding the genitourinary system. EENT: No signs and/or symptoms were reported regarding the EENT system. Derm: No signs and/or symptoms reported regarding the dermatologic system. Musculoskeletal: No signs and/or symptoms reported regarding the musculoskeletal system. 22:31 Reassessment: Patient appears in no apparent distress at this time. Patient and/or bm8 family updated on plan of care and expected duration. Pain level reassessed. Patient denies pain at this time. Patient states symptoms have improved. 23:37 Reassessment: Patient appears in no apparent distress at this time. Patient and/or bm8 family updated on plan of care and expected duration. Pain level reassessed. Patient denies pain at this time. Patient states symptoms have improved. 10/11 01:36 Reassessment: Patient appears in no apparent distress at this time. Patient and/or bm8 family updated on plan of care and expected duration. Pain level reassessed. Patient is alert, oriented x 3, equal unlabored respirations, skin warm/dry/pink. Patient denies pain at this time. Patient states feeling better. Patient states symptoms have improved. Vital Signs: 10/10 17:30 BP 134 / 94; Pulse 84; Resp 18; Temp 97.5(TE); Pulse Ox 100% on R/A; Height 5 ft. 8 in. ld1 ; Pain 0/10; 18:44 BP 134 / 94; Pulse 88; Resp 18; Pulse Ox 100% on R/A; ld1 19:37 BP 114 / 73; Pulse 99; Resp 17; Temp 97.5; Pulse Ox 95% ; Pain 0/10; bm8 22:31 BP 115 / 70; Pulse 94; Resp 18; Temp 97.5; Pulse Ox 99% ; Pain 0/10; bm8 23:37 BP 104 / 64; Pulse 93; Resp 17; Temp 97.5; Pulse Ox 95% ; Pain 0/10; bm8 10/11 01:36 BP 129 / 95; Pulse 90; Resp 17; Temp 97.5; Pulse Ox 100% ; Pain 0/10; bm8 10/10 17:30 Pain Scale: Adult ld1 19:37 Pain Scale: Adult bm8 22:31 Pain Scale: Adult bm8 23:37 Pain Scale: Adult bm8 10/11 01:36 Pain Scale: Adult bm8 Wendy Coma Score: 10/10 19:37 Eye Response: to pain(2). Motor Response: localizes pain(5). Verbal Response: bm8 confused(4). Total: 11. 22:31 Eye Response: to pain(2). Motor Response: localizes pain(5). Verbal Response: bm8 confused(4). Total: 11. 23:37 Eye Response: to voice(3). Motor Response: localizes pain(5). Verbal Response: bm8 confused(4). Total: 12. 10/11 01:45 Eye Response: spontaneous(4). Motor Response: obeys commands(6). Verbal Response: sp4 oriented(5). Total: 15. ED Course: 10/10 17:29 Patient arrived in ED. ld1 17:30 Jackie Langford MD is Attending Physician. sp3 17:30 Straight cath inserted, using sterile technique, 16 Fr. Specimen obtained. Returned mb9 clear yellow urine. Patient tolerated well. 17:30 Maintain EMS IV. Dressing intact. Good blood return noted. Site clean \\T\\ dry. Gauge \\T\\ mb 9 site: 20g right AC. Flushed with 10 mL NS. 17:39 Arm band placed on right wrist. ld1 17:42 EKG done, by ED staff, reviewed by Jackie Langford MD. mb9 18:35 No provider procedures requiring assistance completed. Pt removed IV in room. ld1 18:41 Triage completed. ld1 18:44 Patient has correct armband on for positive identification. Bed in low position. Side ld1 rails up X2. groundwater monitoring technician on. Pulse ox on. NIBP on. Door closed. Noise minimized. Warm blanket given. 19:15 Brian Langford, RN is Primary Nurse. bm8 19:37 Provided Education on: need for transfer. bm8 19:50 Attending Physician role handed off by Jackie Langford MD sp4 19:50 Stanley Galeana MD is Attending Physician. sp4 Administered Medications: 17:46 Drug: NS 0.9% IV 1000 ml IV at 1000 ml once; to be given as a bolus over 60 minutes mb9 Route: IV; Rate: 1000 ml; Site: right antecubital; 19:40 Follow up: Response: No adverse reaction; IV Status: Completed infusion bm8 18:40 Drug: Geodon IM 20 mg IM once Route: IM; Site: right deltoid; mb9 18:52 Follow up: Response: No adverse reaction ld1 Medication: 18:44 VIS not applicable for this client. ld1 Outcome: 18:33 ER care complete, transfer ordered by sp3 10/11 01:48 Discharge ordered by sp4 02:07 Discharged to home ambulatory, [email or web address] 02:07 Condition: improved 02:07 Discharge instructions given to patient, Instructed on discharge instructions, follow up and referral plans. medication usage, Demonstrated understanding of instructions, follow-up care, medications, Prescriptions given X 3, 02:08 Patient left the ED. bm8 Signatures: Yolanda Tinoco RN RN ld1 Jackie Langford MD MD sp3 Kristin Cruz RN RN [id number] Evelyne Hudson, RN RN mb9 Stanley Galeana MD MD sp4 Brian Langford RN RN bm8
--- NOTE | 2024-10-10 18:34 | EDPHYS ---
Physician Documentation [facility] Name: Maryann Alonso Age: 34 yrs Sex: Female : 1990 Arrival Date: 10/10/2024 Time: 17:25 Bed 2 Private MD: ED Physician Stanley Galeana HPI: 10/10 17:40 This 34 yrs old Female presents to ER via Unassigned with complaints of Altered Mental sp3 Status. 17:41 34-year-old female presents to the ED via EMS for excited delirium after manic episode. sp3 She has history of bipolar disease and has an emergency longterm order by local police. Patient apparently punched a window and jumped through it and has been awake for days. Limited history and physical and ROS secondary to patient having received ketamine by EMS. She received 150 mg IM. EMS reports no focal deficits prior to administration.. 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 - Infectious Disease History:: Denies. - Social history:: Smoking status: Patient denies any tobacco usage or history of. ROS: 17:42 Unable to obtain ROS due to altered mental status, sp3 10/11 01:46 Constitutional: Negative for fever, chills, and weight loss, positive for acute alcohol sp4 intoxication All other systems are negative, Exam: 10/10 17:42 Constitutional: The patient appears Limited physical secondary to having received sp3 ketamine. Patient is breathing on her own and in no acute distress. No signs of overt trauma other than abrasions and superficial lacerations to bilateral wrists secondary to her climbing through a broken window. Abdomen is soft, patient is tachycardic in the 110 range with normal blood pressure. Pulse oxygenation normal on room air. Unable to obtain exam due to altered mental status, 17:44 ECG was reviewed by the Attending Physician. EKG demonstrates sinus tachycardia at 114 sp3 bpm with occasional PVC, normal axis, normal intervals, normal ST/T-segment's without evidence of acute ischemia. 10/11 01:45 Constitutional: This is a well developed, well nourished patient who is awake, alert, sp4 and in no acute distress. Head/Face: Normocephalic, atraumatic. Eyes: Pupils equal round and reactive to light, extra-ocular motions intact. Lids and lashes normal. Conjunctiva and sclera are not injected. Cornea within normal limits. Periorbital areas with no swelling, redness, or edema. ENT: Nares patent. No nasal discharge, no septal abnormalities noted. Tympanic membranes are normal and external auditory canals are clear. Oropharynx with no redness, swelling, or masses, exudates, or evidence of obstruction, uvula midline. Mucous membranes moist. Neck: Trachea midline, no thyromegaly or masses palpated, and no cervical lymphadenopathy. Supple, full range of motion without nuchal rigidity, or vertebral point tenderness. Chest/axilla: Normal chest wall appearance and motion. Nontender with no deformity. No lesions are appreciated. Cardiovascular: Regular rate and rhythm with a normal S1 and S2. No gallops, murmurs, or rubs. Normal PMI, no JVD. No pulse deficits. Respiratory: Lungs have equal breath sounds bilaterally, clear to auscultation and percussion. No rales, rhonchi or wheezes noted. No increased work of breathing, no retractions or nasal flaring. Abdomen/GI: Soft, with normal bowel sounds. No distension or tympany. No guarding or rebound. No evidence of tenderness throughout. Back: No spinal tenderness. No costovertebral tenderness. Skin: Warm, dry with normal turgor. Normal color with no rashes, no lesions, and no evidence of cellulitis. MS/ Extremity: Pulses equal, no cyanosis. Neurovascular intact. Full, normal range of motion. Neuro: Awake and alert, GCS 15, oriented to person, place, time, and situation. Cranial nerves II-XII grossly intact. Motor strength 5/5 in all extremities. Sensory grossly intact. Psych: Awake, alert, with orientation to person, place and time. Behavior, mood, and affect are within normal limits Vital Signs: 10/10 17:30 BP 134 / 94; Pulse 84; Resp 18; Temp 97.5(TE); Pulse Ox 100% on R/A; Height 5 ft. 8 in. ld1 ; Pain 0/10; 18:44 BP 134 / 94; Pulse 88; Resp 18; Pulse Ox 100% on R/A; ld1 19:37 BP 114 / 73; Pulse 99; Resp 17; Temp 97.5; Pulse Ox 95% ; Pain 0/10; bm8 22:31 BP 115 / 70; Pulse 94; Resp 18; Temp 97.5; Pulse Ox 99% ; Pain 0/10; bm8 23:37 BP 104 / 64; Pulse 93; Resp 17; Temp 97.5; Pulse Ox 95% ; Pain 0/10; bm8 10/11 01:36 BP 129 / 95; Pulse 90; Resp 17; Temp 97.5; Pulse Ox 100% ; Pain 0/10; bm8 10/10 17:30 Pain Scale: Adult ld1 19:37 Pain Scale: Adult bm8 22:31 Pain Scale: Adult bm8 23:37 Pain Scale: Adult bm8 10/11 01:36 Pain Scale: Adult bm8 Fisher Coma Score: 10/10 19:37 Eye Response: to pain(2). Motor Response: localizes pain(5). Verbal Response: bm8 confused(4). Total: 11. 22:31 Eye Response: to pain(2). Motor Response: localizes pain(5). Verbal Response: bm8 confused(4). Total: 11. 23:37 Eye Response: to voice(3). Motor Response: localizes pain(5). Verbal Response: bm8 confused(4). Total: 12. 10/11 01:45 Eye Response: spontaneous(4). Motor Response: obeys commands(6). Verbal Response: sp4 oriented(5). Total: 15. MDM: 10/10 17:30 Medical Screening Exam initiated sp3 17:43 Data reviewed: vital signs, nurses notes, old medical records, lab test result(s), EKG. sp3 ED course: 34-year-old female presents with excited delirium and altered mental status. Consider yasmani versus true delirium versus some other metabolic process. Will obtain toxicology workup and observe patient. No history of suicidal ideation or discussion of suicide based on history from EMS and police. Will keep on precautions for now. Disposition pending workup and patient course.. 18:32 ED course: Patient now waking up from the ketamine and is belligerent and screaming and sp3 hallucinating with probable psychosis overlying her underlying issue. Patient's alcohol up was at 285. Will give Geodon 20 mg IM. Probable transfer. Will reevaluate once alcohol is lower for final disposition. Patient will be signed out to nighttime physician.. 10/11 01:43 Differential Diagnosis: CVA, electrolyte abnormality, alcohol intoxication, sp4 hypoglycemia, meningitis, pneumonia, volume depletion. Consideration of Admission/Observation Escalation of care including admission/observation considered. ED course: . ED course: Patient woke up at 1:30 AM patient states she cannot recall the events over the provide at night. Patient states she does not usually drink alcohol. She also states that she generally takes Synthroid 75 mcg daily and Cytomel 5 mcg twice daily. She has been off her thyroid medications for some time over a month ago. Also patient takes trazodone as needed for sleep. At this time patient is fully alert, denied homicidal or suicidal ideation. Denied hallucinations or delusions. Patient at this time is stable for discharge. Patient states she desires to be released from the emergency room.. 10/10 17:31 Order name: Acetaminophen; Complete Time: 18:31 sp3 10/10 17:31 Order name: Basic Metabolic Panel; Complete Time: 18:31 sp3 10/10 17:31 Order name: CBC with Diff; Complete Time: 18:31 sp3 10/10 17:31 Order name: ETOH Level; Complete Time: 18:31 sp3 10/10 17:31 Order name: Hepatic Function; Complete Time: 18:31 sp3 10/10 17:31 Order name: PT-INR; Complete Time: 18:31 sp3 10/10 17:31 Order name: Test, Urine; Complete Time: 18:31 sp3 10/10 17:31 Order name: Ptt, Activated; Complete Time: 18:31 sp3 10/10 17:31 Order name: Salicylate; Complete Time: 18:45 sp3 10/10 17:31 Order name: Urine Drug Screen; Complete Time: 18:31 sp3 10/10 17:31 Order name: EKG; Complete Time: 17:31 sp3 10/10 17:31 Order name: EKG - Nurse/Tech; Complete Time: 17:42 sp3 10/10 17:31 Order name: IV Saline Lock; Complete Time: 17:42 sp3 10/10 17:31 Order name: Labs collected and sent; Complete Time: 17:42 sp3 10/10 17:31 Order name: Suicide Screening ([place]); Complete Time: 19:15 sp3 10/10 17:31 Order name: Cath: Cath UA; Complete Time: 17:42 sp3 10/10 17:31 Order name: Monitor; Complete Time: 17:42 sp3 10/10 17:31 Order name: Pulse Ox Monitoring; Complete Time: 17:42 sp3 Administered Medications: 10/10 17:46 Drug: NS 0.9% IV 1000 ml IV at 1000 ml once; to be given as a bolus over 60 minutes mb9 Route: IV; Rate: 1000 ml; Site: right antecubital; 19:40 Follow up: Response: No adverse reaction; IV Status: Completed infusion bm8 18:40 Drug: Geodon IM 20 mg IM once Route: IM; Site: right deltoid; mb9 18:52 Follow up: Response: No adverse reaction ld1 Disposition Summary: 10/11/24 01:48 Discharge Ordered Notes: Location: Home sp4 Problem: new(10/11/24 01:48) sp4 Symptoms: have improved(10/11/24 01:48) sp4 Condition: Stable(10/11/24 01:48) sp4 Diagnosis - Alcohol abuse with intoxication, unspecified(10/11/24 01:48) sp4 - Acute agitated delirium, agitation requiring sedation sp4 - Hypothyroidism, unspecified(10/11/24 01:48) sp4 Followup: sp4 - With: Private Physician - When: 7 - 10 days - Reason: Recheck today's complaints Discharge Instructions: - Discharge Summary Sheet sp4 - Alcohol Intoxication sp4 Forms: - Patient Portal Instructions sp4 Prescriptions: - Cytomel 5 mcg Oral tablet - take 1 tablet ORAL route every 12 hours; 120 tablet; Refills: 0, Product sp4 Selection Permitted - trazodone 50 mg Oral tablet - take 1 tablet ORAL route Every night; 30 tablet; Refills: 0, Product Selection sp4 Permitted - Levothyroxine 75 mcg Oral tablet - take 1 tablet ORAL route once daily take 30 minutes before breakfast; 60 sp4 tablet; Refills: 0, Product Selection Permitted Signatures: Dispatcher [employer] EDYolanda James RN RN ld1 Jackie Langford MD MD sp3 Evelyne Hudson RN RN mb9 Stanley Galeana MD MD sp4 Brian Langford RN bm8 Corrections: (The following items were deleted from the chart) 17:31 17:31 ACETAMINOPHEN+C.LAB.BRZ ordered. EDMS EDMS 17:31 17:31 BASIC METABOLIC PANEL+C.LAB.BRZ ordered. EDMS EDMS 17:31 17:31 CBC+H.LAB.BRZ ordered. EDMS EDMS 17:31 17:31 ETHANOL+C.LAB.BRZ ordered. EDMS EDMS 17:31 17:31 HEPATIC FUNCTION+C.LAB.BRZ ordered. EDMS EDMS 17:31 17:31 PROTIME (+INR)+COAG.LAB.BRZ ordered. EDMS EDMS 17:31 17:31 Test, Urine+UC.LAB.BRZ ordered. EDMS EDMS 17:31 17:31 PTT, ACTIVATED+COAG.LAB.BRZ ordered. EDMS EDMS 17:31 17:31 SALICYLATE+C.LAB.BRZ ordered. EDMS EDMS 17:31 17:31 URINE DRUG SCREEN+UC.LAB.BRZ ordered. EDMS EDMS 10/11 01:46 05 18:33 TBD psychiatry sp3 sp4 10/11 01:47 10/10 18:33 Psych Facility sp3 sp4 10/11 01:47 10/10 18:33 Higher level of care sp3 sp4 10/11 01:47 10/10 18:33 Fair sp3 sp4 10/11 01:47 10/10 18:33 an acute exacerbation sp3 sp4 10/11 01:47 10/10 18:33 have worsened sp3 sp4 10/11 01:47 10/10 18:33 Acute yasmani, psychosis sp3 sp4 10/11 01:47 01:46 TBD psychiatry sp4 sp4 01:47 01:46 Hypothyroidism, unspecified sp4 sp4 01:47 01:46 Alcohol abuse with intoxication, unspecified sp4 sp4 01:47 01:46 Agitation requiring sedation sp4 sp4
[2024-10-11 02:13] VITALS: TEMP 97.5
[2024-10-11 02:19] VITALS: BP 129/95; O2SAT 100
--- NOTE | 2024-10-11 12:19 | EKG ---
Test Date: 2024-10-10 Test Time: 17:26:35 Die Developer: MB MEASUREMENT RESULTS: Intervals: Rate: 114 AK: 186 QRSD: 70 QT: 290 QTc: 399 [place]: P: 54 AK: 186 QRS: 45 T: 31 INTERPRETIVE STATEMENTS: Sinus tachycardia with occasional premature ventricular complexes Possible Anterior infarct, age undetermined Abnormal ECG Compared to ECG 09/30/2022 21:20:24 Ventricular premature complex(es) now present Sinus rhythm no longer present Myocardial infarct finding still present Electronically Signed On 10-11-24 12:18:56 CDT by Riccardo Mcarthur
== END 2024-10-11 02:08 | disposition home or self-care (01) ==
LOC: ER 17:25
DX: F10.129 Alcohol abuse with intoxication, unspecified (principal); F05 Delirium due to known physiological condition; E03.9 Hypothyroidism, unspecified
CPT/HCPCS: 36415; 51702; 80048; 80076; 80143; 80179; 80307; 81025; 82077; 85025; 85610; 85730; 93005; 96360; 96361; 96372; 99285; J3486; J7030